=== PATIENT | female | born 1960 | race Caucasian/White ===

== ENCOUNTER 2018-07-19 16:48 | Outpatient (REF) | payer OTHER, SELFPAY ==
[2018-07-19 22:50] LABS: HCT 39.5 % (36.0-46.0); HGB 13.1 g/dL (12.0-15.5); Mean Corp. HGB Concentration 33.2 g/dL (32.0-36.0); Mean Corpuscular Hemoglobin 30.8 pg (27.0-33.0); Mean Corpuscular Volume 92.7 fL (80-95); Mean Platelet Volume 12.5 fL (8.0-11.0); Platelet Count 210 x1000/uL (130-400); RBC 4.26 m/cumm (4.00-5.20); RBC Distribution Width 12.7 % (11.7-14.6); White Blood Cell Count 6.44 k/cumm (4.4-10.8)
[2018-07-19 23:07] LABS: Anion Gap 9.3 mmol/L (3-11); BUN 12 mg/dL (7-18); CO2 29.7 mmol/L (21.0-32.0); Calcium 9.6 mg/dL (8.5-10.1); Chloride 103 mmol/L (98-107); Estimated GFR 56.75 (mL/min/1.73m2); Ferritin 43 ng/mL (8-388); Glucose 99 mg/dL (70-100); Potassium 4.7 mmol/L (3.5-5.1); Sodium 142 mmol/L (136-145)
[2018-07-19 23:10] LABS: Hemoglobin A1C 6.3 % (4.5-6.2)
== END 2018-07-19 17:08 ==
LOC: NCHCN 16:48
PROVIDERS: PCP Internal Medicine; Visit Provider Family Medicine
DX: Z00.00 Encounter for general adult medical examination without abnormal findings (principal); L65.9 Nonscarring hair loss, unspecified; G43.909 Migraine, unspecified, not intractable, without status migrainosus
CPT/HCPCS: 80048; 85027; 82728; 83036; 84443

== ENCOUNTER 2018-10-03 15:21 | Outpatient (CLI) | payer OTHER, SELFPAY ==
[2018-10-03 16:00] LABS: Hemoglobin A1C 6.3 % (4.5-6.2)
== END 2018-10-03 15:41 ==
PROVIDERS: PCP Family Medicine; Visit Provider Family Medicine
DX: R73.09 Other abnormal glucose (principal)
CPT/HCPCS: 36415; 83036

== ENCOUNTER 2018-12-20 14:00 | Outpatient (REF) | payer OTHER, SELFPAY ==
--- NOTE | 2018-12-22 12:30 | PAPFT_PTH ---
PATIENT: Cheri Caputo LOC: [facility] U#:[id number] AGE/SX: 58/F ROOM: RE12/20/[address]: Mariann Buchanan MD : 1960 BED: DIS: 12/20/2018 SPEC #: [id number] RECD: 12/25/18 12:53 STATUS: DIANA MCPHERSON #: [id number] MOLLY: 12/22/18 12:[address]: Mariann Buchanan DEPT: [facility] Cytology RECD BY: Claudette Contreras Tissues: 1 - CX/ENDOCX FOR PAP SMEARS Procedures: PAP THIN PREP/UVM Screening HPV DNA PROBE Comments: [id number]
== END 2018-12-20 14:20 ==
LOC: LBN 14:00
PROVIDERS: PCP Family Medicine; Visit Provider Family Medicine
DX: Z12.4 Encounter for screening for malignant neoplasm of cervix (principal); Z11.51 Encounter for screening for human papillomavirus (HPV)
CPT/HCPCS: 88142; 87624

== ENCOUNTER 2019-02-15 09:09 | Outpatient (CLI) | payer OTHER, SELFPAY ==
[2019-02-15 09:51] LABS: Hemoglobin A1C 6.3 % (4.5-6.2)
== END 2019-02-15 09:29 ==
PROVIDERS: PCP Family Medicine; Visit Provider Family Medicine
DX: D58.2 Other hemoglobinopathies (principal)
CPT/HCPCS: 36415; 83036

== ENCOUNTER 2019-05-08 14:41 | Outpatient (CLI) | payer OTHER, SELFPAY ==
[2019-05-08 15:32] LABS: Abs Immature Grans 0.01 k/cumm (0.0-0.09); Absolute Basophil Count 0.04 k/cumm (0.0-0.2); Absolute Eosinophil Count 0.32 k/cumm (0.0-0.7); Absolute Lymphocyte Count 2.16 k/cumm (1.2-3.4); Absolute Monocyte Count 0.51 k/cumm (0.11-0.7); Absolute Neutrophil Count 4.17 k/cumm (1.2-6.7); Basophils % 0.6; Eosinophils % 4.4; HCT 38.3 % (36.0-46.0); HGB 12.6 g/dL (12.0-15.5); Immature Grans % 0.1; Mean Corp. HGB Concentration 32.9 g/dL (32.0-36.0); Mean Corpuscular Hemoglobin 30.3 pg (27.0-33.0); Mean Corpuscular Volume 92.1 fL (80-95); Mean Platelet Volume 11.6 fL (8.0-11.0); Monocytes % 7.1; Neutrophils % 57.8; Platelet Count 240 x1000/uL (130-400); RBC 4.16 m/cumm (4.00-5.20); RBC Distribution Width 12.8 % (11.7-14.6); White Blood Cell Count 7.21 k/cumm (4.4-10.8)
[2019-05-08 16:14] LABS: TSH 2.01 uIU/mL (0.36-3.74)
[2019-05-08 16:33] LABS: ESR 12 mm/hr (0-30)
[2019-05-08 16:49] LABS: Hemoglobin A1C 6.1 % (4.5-6.2)
== END 2019-05-08 15:01 ==
PROVIDERS: PCP Family Medicine; Visit Provider Internal Medicine
DX: R53.83 Other fatigue (principal); R50.9 Fever, unspecified
CPT/HCPCS: 36415; 85652; 83036; 84443; 85025

== ENCOUNTER 2019-12-08 08:44 | Emergency (ER) | payer BC, SELFPAY ==
[2019-12-08 08:50] VITALS: BP 158/91; PULSE 107; RESP 18; TEMP 36.7; O2SAT 98
--- NOTE | 2019-12-08 09:00 | DI.RAD_ITS ---
EXAM: XR PORTABLE CHEST AP CLINICAL HISTORY: cough, fever, PUI TECHNIQUE: 2D digital imaging was performed. COMPARISON: No exams were available for comparison FINDINGS: MEDIASTINUM: Normal. HEART: Normal. PULMONARY VASCULATURE: Normal. LUNGS: Clear. PLEURAL SPACE: No pleural effusion or pneumothorax. BONE:Normal. OTHER FINDINGS:Normal. IMPRESSION: No acute pulmonary findings. DATA REPOSITORY: RADIATION DOSE DELIVERED:
--- NOTE | 2019-12-08 09:20 | ED.GENADUL_ITS ---
Discharge Plan Disposition Patient Disposition: HOME Condition: Stable Discharge Details Chief Complaint: Fever Clinical Impression: COVID-19 virus test result unknown, Acute febrile illness Primary Care Provider: Mariann Buchanan ED Provider: Brandan Almazan Home Meds and New Rx's Prescriptions: Continued oxymetazoline [Afrin (oxymetazoline)] 15 ML spray,non-aerosol 1 spry NS HS RF: 0 cholecalciferol (vitamin D3) 2,000 unit tablet 1,000 unit PO DAILY RF: 0 ibuprofen 600 mg tablet 600 mg PO Q6H PRN Qty: 90 RF: 2 friginodlx-utpxikqycdbvg-gwsa 50-325-40 mg tablet 1 - 2 tab PO Q4H PRN Qty: 60 RF: 0 (DME) blood-glucose meter Misc See Rx Instructions .ROUTE .MEDSUPPLY Qty: 1 RF: 0 (DME) blood sugar diagnostic [Blood Glucose Test] Strip See Rx Instructions .ROUTE .MEDSUPPLY Qty: 100 RF: 2 (DME) lancets [Comfort Lancets] Misc See Rx Instructions .ROUTE .MEDSUPPLY Qty: 100 RF: 2 metformin 500 mg tablet extended release 24 hr 1,500 mg PO DAILY RF: 0 Discharge Instructions Instructions: Fever in Adults (ED) Additional Instructions: Labs today were nondiagnostic. Your white blood cell count was 4.57. Your glucose was 111. I am concerned that you may have COVID-19 given recent exposure and symptoms. Please drink plenty of fluids to maintain hydration. Maintain quarantine at home. COVID-19 testing is pending at this time. Tick borne illness testing is also pending. Please contact your primary care physician to arrange follow-up. Call on Tuesday. Please return to the ER immediately for any worsening or new concerning symptoms including shortness of breath or difficulty breathing. Stand Alone Forms: PENDING COVID-19 TESTING Discharge Data Discharge Date/Time-TO BE ENTERED AT DEPARTURE: 12/08/19 11:35 Medical Decision Making 929??59-year-old female here with fever, chills, myalgias since yesterday. She has had significant contact with a person who has tested positive for COVID-19 over the past week. Also recent tick bite about 2 to 3 weeks ago. Patient did receive doxycycline after tick removal and I think tickborne disease is low likelihood but will check chemistry to assess liver function, CBC, and tickborne disease screening panel. Patient initially tachycardic on arrival secondary to anxiety. Patient has been hydrating well. She was not tachycardic with a heart rate of 96bpm on my exam. Consider consider pneumonia. Will obtain chest x-ray. High suspicion for COVID-19. Will check COVID-19 testing. Will give tylenol and ibuprofen for fever. 1033 --labs reviewed and nondiagnostic. Chest x-ray reviewed and interpreted by me: No acute cardiopulmonary disease. Radiology read pending. All results were discussed with the patient. Repeat vitals performed and heart rate normal. Pulse oximetry saturations remain normal. Patient reassessed: She is stable and feeling much better after Tylenol and ibuprofen. Plan for outpatient follow-up with PCP and follow-up with COVID-19 testing and tick panel. Patient to be to maintain quarantine until testing negative and clearance by PCP. Usual customary discharge instructions provided, discharge plan was discussed with the patient who verbalized understanding. Lab Data Lab results reviewed: Yes I reviewed the patient's lab results. Labs: Laboratory Tests Range/Units 12/08/19 12/08/19 09:40 09:40 WBC (4.4-10.8) k/cumm 4.57 RBC (4.00-5.20) m/cumm 4.35 Hgb (12.0-15.5) g/dL 13.2 Hct (36.0-46.0) % 39.2 MCV (80-95) fL 90.1 MCH (27.0-33.0) pg 30.3 MCHC (32.0-36.0) g/dL 33.7 RDW (11.7-14.6) % 12.7 Plt Count (130-400) x1000/uL 181 MPV (8.0-11.0) fL 10.8 Immature Gran % % 0.2 Neutrophils % 83.4 Lymphocytes % 9.0 Monocytes % 6.8 Eosinophils % 0.2 Basophils % 0.4 Absolute Neutrophils (1.2-6.7) k/cumm 3.81 Absolute Lymphocytes (1.2-3.4) k/cumm 0.41 L Absolute Monocytes (0.11-0.7) k/cumm 0.31 Absolute Eosinophils (0.0-0.7) k/cumm 0.01 Absolute Basophils (0.0-0.2) k/cumm 0.02 Sodium (136-145) mmol/L 136 Potassium (3.5-5.1) mmol/L 4.1 Chloride (98-107) mmol/L 100 Carbon Dioxide (21.0-32.0) mmol/L 28.0 Anion Gap (3-11) mmol/L 8.0 BUN (7-18) mg/dL 10 Creatinine (0.55-1.02) mg/dL 1.06 H Estimated GFR/1.73 m2 (mL/min/1.73m2) 52.88 Glucose (74-106) mg/dL 111 H Calcium (8.5-10.1) mg/dL 9.3 Total Bilirubin (0.2-1.0) mg/dL 0.5 AST (15-37) U/L 27 ALT (14-59) U/L 40 Alkaline Phosphatase (46-116) U/L 62 Total Protein (6.4-8.2) g/dL 7.9 Albumin (3.4-5.0) g/dL 4.0 HPI General Mode of arrival: ambulatory . Date/Time Provider Initiated Documentation: 12/08/19 08:55 . Limitations to Documentation: no limitations . Information obtained by: patient . HPI Narrative: 59-year-old female with history of diabetes, here with chief complaint of fever. Patient notes fever and associated chills and myalgias since yesterday. Symptoms are moderate. No associated shortness of breath currently. No cough. She notes that she is currently living with someone who is COVID-19 positive. This person recently traveled from [place] and was in [facility] prior to travel to [place]. Patient notes that she traveled to [facility] and was careless and has had close contact with COVID-19 positive person. Patient does state that she has had low pulse ox of 93% at home. Patient also notes she had a tick bite on her right abdomen that did not develop a rash about 2 weeks ago. She did take doxycycline 200 mg after tick removal. She believes the tick was a deer tick. Related Data Home Medications Medication Instructions Recorded Confirmed oxymetazoline [Afrin 1 spry NS HS spray 07/15/15 12/08/19 (oxymetazoline)] cholecalciferol (vitamin D3) 50 1,000 unit PO DAILY tab 07/10/19 12/08/19 mcg (2,000 unit) tablet ibuprofen 600 mg tablet 600 mg PO Q6H PRN #90 tab-cap 09/04/19 12/08/19 cyutuixwos-olyggujydwcet-litmzeqg 1 - 2 tab PO Q4H PRN #60 tab-cap 09/05/19 12/08/19 50 mg-325 mg-40 mg tablet blood sugar diagnostic #100 each 09/21/19 blood-glucose meter #1 each 09/21/19 lancets #100 each 09/21/19 metformin 1,500 mg PO DAILY 12/08/19 12/08/19 Previous Rx's Medication Instructions Recorded ibuprofen 600 mg tablet 600 mg PO Q6H PRN #90 tab-cap 09/04/19 ysphbdlmlv-uuvmwmjualval-gjcbeqrg 1 - 2 tab PO Q4H PRN #60 tab-cap 09/05/19 50 mg-325 mg-40 mg tablet blood sugar diagnostic #100 each 09/21/19 blood-glucose meter #1 each 09/21/19 lancets #100 each 09/21/19 Allergies Allergy/AdvReac Type Severity Reaction Status Date / Time sumatriptan [From Imitrex] AdvReac Severe VOMITING Unverified 12/08/19 08:54 sumatriptan succinate AdvReac Severe VOMITING Unverified 12/08/19 08:54 [From Imitrex] General Stated Complaint: Fever PUNEET: 2 Review of Systems All systems reviewed & are unremarkable except as noted in HPI and below Constitutional Constitutional: Reports fever(s) Respiratory Respiratory: Denies cough Musculoskeletal Musculoskeletal: Reports as per HPI Integumentary/Breasts Skin/Breast: Denies rash PFSH Surgical History bone marrow donation Breast, Mastectomy left with implant and reconstruction Excision, Pilonidal Cyst Fracture, Open Treatment right tibia mastoplexy right rhinoplasty Tonsillectomy Trigger Finger release Family History Mother Essential hypertension Father Essential hypertension Personal history of malignant neoplasm lung/kidney Heart disease Hyperlipidemia Sister Diabetes Personal history of malignant neoplasm multiple Sister Essential hypertension Personal history of malignant neoplasm lung Grandfather No problems noted. Grandfather Diabetes Heart disease Grandmother Essential hypertension Hyperlipidemia Stroke Grandmother Personal history of malignant neoplasm BREAST Daughter No problems noted. Daughter No problems noted. Social History Smoking/Tobacco Use Status: Former Tobacco Use Alcohol Intake: current Alcohol Intake frequency: a few times a month Drug use: Never Substance use type: does not use Do you feel safe at home: Yes Do you feel safe in your relationship?: Yes Exam Const General: cooperative and no acute distress Eyes Conjunctivae: normal conjunctivae Sclera: normal sclerae Neck Neck: trachea midline Resp Auscultation: clear to auscultation bilaterally, no rales, no rhonchi and no wheezes Cardio Jugular venous pressure: no JVD Rate: regular rate and not tachycardic Rhythm: regular rhythm Skin Rashes: no rashes Other: Small healing tick bite right abdomen with no erythema Neuro General: patient alert, patient awake, patient oriented x3 and tone normal Psych Mental Status: mental status grossly normal Speech and Movement: speech and movement normal Affect: anxious affect Course Vital Signs Vital signs: Vital Signs Temperature 36.7 C 12/08/19 08:50 Pulse 107 H 12/08/19 08:50 Respiratory Rate 18 12/08/19 08:50 Blood Pressure 158/91 H 12/08/19 08:50 Pulse Oximetry 98 12/08/19 08:50 Temperature 36.7 C 12/08/19 08:50 Temperature Source Temporal Artery Scan 12/08/19 08:50 Pulse 107 H 12/08/19 08:50 Respiratory Rate 18 12/08/19 08:50 Respiratory Effort Non-Labored 12/08/19 08:57 Blood Pressure 158/91 H 12/08/19 08:50 Blood Pressure Position Sitting 12/08/19 08:50 Pulse Oximetry 98 12/08/19 08:50 Oxygen Delivery Method Room Air 12/08/19 08:50 Oxygen Flow Rate 0 12/08/19 08:50 Pain Level 2 12/08/19 08:50
[2019-12-08 09:59] LABS: Abs Immature Grans 0.01 k/cumm (0.0-0.09); Absolute Basophil Count 0.02 k/cumm (0.0-0.2); Absolute Eosinophil Count 0.01 k/cumm (0.0-0.7); Absolute Lymphocyte Count 0.41 k/cumm (1.2-3.4); Absolute Monocyte Count 0.31 k/cumm (0.11-0.7); Absolute Neutrophil Count 3.81 k/cumm (1.2-6.7); Basophils % 0.4; Eosinophils % 0.2; HCT 39.2 % (36.0-46.0); HGB 13.2 g/dL (12.0-15.5); Immature Grans % 0.2 %; Mean Corp. HGB Concentration 33.7 g/dL (32.0-36.0); Mean Corpuscular Hemoglobin 30.3 pg (27.0-33.0); Mean Corpuscular Volume 90.1 fL (80-95); Mean Platelet Volume 10.8 fL (8.0-11.0); Monocytes % 6.8; Neutrophils % 83.4; Platelet Count 181 x1000/uL (130-400); RBC 4.35 m/cumm (4.00-5.20); RBC Distribution Width 12.7 % (11.7-14.6); White Blood Cell Count 4.57 k/cumm (4.4-10.8)
[2019-12-08] MEDS: Ibuprofen 600 MG TAB PO (10:00)
[2019-12-08] MEDS: Acetaminophen 325 MG TAB 650 MG PO (10:00)
[2019-12-08 10:15] LABS: ALT 40 U/L (14-59); AST 27 U/L (15-37); Alkaline Phosphatase 62 U/L (46-116); BUN 10 mg/dL (7-18); Bilirubin, Total 0.5 mg/dL (0.2-1.0); CREATININE 1.06 mg/dL (0.55-1.02); Calcium 9.3 mg/dL (8.5-10.1); Chloride 100 mmol/L (98-107); Estimated GFR 52.88 (mL/min/1.73m2); Glucose 111 mg/dL (74-106); Potassium 4.1 mmol/L (3.5-5.1); Sodium 136 mmol/L (136-145); Total Protein 7.9 g/dL (6.4-8.2)
[2019-12-08 11:21] VITALS: BP 136/80; PULSE 75; RESP 18; TEMP 36.4; O2SAT 96
[2019-12-08 11:35] VITALS: BP 136/80; PULSE 75; RESP 18; TEMP 36.4; O2SAT 96
--- NOTE | 2019-12-08 11:45 | DI.VRAD_ITS ---
PROCEDURE INFORMATION: Exam: XR Chest, 1 View Exam date and time: 12/08/2019 10:24 AM Age: 59 years old Clinical indication: Fever TECHNIQUE: Imaging protocol: XR of the chest Views: 1 view. COMPARISON: No relevant prior studies available. FINDINGS: Lungs: Unremarkable. No consolidation. Pleural space: Unremarkable. No pleural effusion. No pneumothorax. Heart/Mediastinum: Unremarkable. No cardiomegaly. Bones/joints: Unremarkable. IMPRESSION: No acute findings. Dictated and Authenticated by: Mathew Boogie MD. Ordering:THERESA Gipson MD
[2019-12-09 13:36] LABS: COVID-19 RT-PCR UVMMC Result Negative (Negative)
[2019-12-10 11:10] LABS: Lyme Ab w Rflx to Lyme Confirm Negative (Negative)
[2019-12-11 23:29] LABS: Anaplasma phagocytophilum Positive (Negative); B. miyamotoi PCR Negative (Negative); Babesia divergens/MO-1 Negative (Negative); Babesia duncani Negative (Negative); Babesia microti Negative (Negative); Ehrlichia chaffeensis Negative (Negative); Ehrlichia ewingii/canis Negative (Negative); Ehrlichia muris eauclairensis Negative (Negative)
== END 2019-12-08 11:35 | disposition home or self-care (01) ==
PROVIDERS: Emergency Provider Student in an Organized Health Care Education/Training Program; PCP Family Medicine
DX: M79.10 Myalgia, unspecified site (principal); R50.9 Fever, unspecified; Z20.828 Contact with and (suspected) exposure to other viral communicable diseases; S30.861A Insect bite (nonvenomous) of abdominal wall, initial encounter; W57.XXXA Bitten or stung by nonvenomous insect and other nonvenomous arthropods, initial encounter; E11.9 Type 2 diabetes mellitus without complications; Z79.84 Long term (current) use of oral hypoglycemic drugs
CPT/HCPCS: 36415; 80053; 87798; 99284; U0003; 71045; 85025; 86618

== ENCOUNTER 2019-12-11 08:07 | Outpatient (CLI) | payer BC, SELFPAY ==
[2019-12-11 23:01] LABS: COVID-19 RT-PCR UVMMC Result Negative (Negative)
== END 2019-12-11 08:27 ==
PROVIDERS: PCP Family Medicine; Visit Provider Family Medicine
DX: Z20.828 Contact with and (suspected) exposure to other viral communicable diseases (principal)
CPT/HCPCS: U0003

== ENCOUNTER 2020-01-02 09:19 | Outpatient (CLI) | payer BC, SELFPAY ==
[2020-01-02 13:15] LABS: Hemoglobin A1C 5.9 % (3.8-5.6)
[2020-01-02 13:32] LABS: Ferritin 32 ng/mL (8-252); Vitamin B12 483 pg/mL (193-986)
== END 2020-01-02 09:39 ==
PROVIDERS: PCP Family Medicine; Visit Provider Family Medicine
DX: L65.9 Nonscarring hair loss, unspecified (principal); R73.9 Hyperglycemia, unspecified; T38.3X5A Adverse effect of insulin and oral hypoglycemic [antidiabetic] drugs, initial encounter
CPT/HCPCS: 36415; 82607; 82728; 83036

== ENCOUNTER 2020-01-24 01:19 | Outpatient (CLI) | payer BC, SELFPAY ==
--- NOTE | 2020-01-24 09:25 | DI.RAD_ITS ---
EXAM: XR TOE LT FOURTH CLINICAL HISTORY: f/u fx lt 4th toe, compare to outside,s92.502a TECHNIQUE: COMPARISON: CR LEFT FOOT COMPLETE from 07/09/2014 FINDINGS: Three views were obtained. There is a fracture the base of the proximal phalanx of the 4th toe which extends through the proximal articular surface with moderate displacement. No other fracture seen. IMPRESSION:
== END 2020-01-24 01:39 ==
PROVIDERS: PCP Family Medicine; Visit Provider Family Medicine
DX: S92.912A Unspecified fracture of left toe(s), initial encounter for closed fracture (principal)
CPT/HCPCS: 73660

== ENCOUNTER 2020-03-28 02:17 | Outpatient (CLI) | payer BC, SELFPAY ==
[2020-03-29 20:50] LABS: COVID-19 RT-PCR Result NEGATIVE (Negative)
== END 2020-03-28 02:37 ==
PROVIDERS: PCP Family Medicine; Visit Provider Family Medicine
DX: Z11.59 Encounter for screening for other viral diseases (principal)
CPT/HCPCS: U0003

== ENCOUNTER 2020-11-03 10:56 | Outpatient (REF) | payer BC, SELFPAY ==
[2020-11-04 02:25] LABS: COVID-19 RT-PCR UVMMC Result Negative (Negative)
[2020-11-04 10:30] LABS: Lyme Ab w Rflx to Lyme Confirm Negative (Negative)
[2020-11-05 19:15] LABS: Anaplasma phagocytophilum Negative (Negative); B. miyamotoi PCR Negative (Negative); Babesia divergens/MO-1 Negative (Negative); Babesia duncani Negative (Negative); Babesia microti Negative (Negative); Ehrlichia chaffeensis Negative (Negative); Ehrlichia ewingii/canis Negative (Negative); Ehrlichia muris eauclairensis Negative (Negative)
== END 2020-11-03 10:57 | disposition home or self-care (01) ==
LOC: LBN 10:56
PROVIDERS: PCP Family Medicine; Visit Provider Nurse Practitioner Family
DX: J06.9 Acute upper respiratory infection, unspecified (principal); R50.9 Fever, unspecified; M79.18 Myalgia, other site; Z20.822 Contact with and (suspected) exposure to COVID-19
CPT/HCPCS: 87798; U0003; 86618

== ENCOUNTER 2021-06-11 15:55 | Outpatient (REF) | payer BC, SELFPAY ==
[2021-06-13 01:01] LABS: COVID-19 RT-PCR UVMMC Result Negative (Negative)
== END 2021-06-11 15:56 | disposition home or self-care (01) ==
LOC: LBN 15:55
PROVIDERS: PCP Emergency Medicine; Visit Provider Physician Assistant
DX: Z20.822 Contact with and (suspected) exposure to COVID-19 (principal)
CPT/HCPCS: U0003

== ENCOUNTER 2023-02-02 02:51 | Outpatient (CLI) | payer BC, SELFPAY ==
[2023-02-02 09:44] LABS: Abs Immature Grans 0.02 10^3/uL (0.0-0.06); Absolute Basophil Count 0.06 10^3/uL (0.0-0.2); Absolute Eosinophil Count 0.26 10^3/uL (0.0-0.7); Absolute Lymphocyte Count 1.38 10^3/uL (1.2-3.4); Absolute Monocyte Count 0.47 10^3/uL (0.1-0.8); Absolute Neutrophil Count 3.23 10^3/uL (1.2-6.7); Basophils % 1.1; Eosinophils % 4.8; HCT 41.9 % (36.0-46.0); HGB 13.9 g/dL (11.2-15.7); Immature Grans % 0.4; Lymphocytes % 25.5; MCH 30.5 pg (27.0-33.0); MCHC 33.2 % (32.0-36.0); MCV 92 fL (80-95); MPV 10.9 fL (8.0-11.0); Monocytes % 8.7; Neutrophils % 59.5; Platelet Count 208 10^3/uL (130-400); RBC 4.55 10^6/uL (3.93-5.22); RDW 12.9 % (11.7-14.6); RDW-SD 43.3 fL; WBC 5.42 10^3/uL (4.4-10.8)
[2023-02-02 10:19] LABS: ALT 23 U/L (14-59); AST 18 U/L (15-37); Albumin 3.7 g/dL (3.4-5.0); Alkaline Phosphatase 87 U/L (46-116); BUN 12 mg/dL (7-18); Bilirubin, Total 0.3 mg/dL (0.2-1.0); CREATININE 0.9 mg/dL (0.55-1.02); Calcium 9.4 mg/dL (8.5-10.1); Chloride 106 mmol/L (98-107); Estimated GFR 71.39 (mL/min/1.73m2); Glucose 86 mg/dL (74-106); Potassium 4.5 mmol/L (3.5-5.1); Sodium 145 mmol/L (136-145); Total Protein 7.4 g/dL (6.4-8.2)
[2023-02-02 16:40] LABS: Lab Add On Test DONE
[2023-02-03 09:52] LABS: Hepatitis C Ab w Rflx HCV PCR Negative (Negative)
== END 2023-02-02 02:52 | disposition home or self-care (01) ==
LOC: LBO 02:51
PROVIDERS: PCP Family Medicine; Visit Provider Family Medicine
DX: G89.29 Other chronic pain (principal); Z00.00 Encounter for general adult medical examination without abnormal findings; Z13.1 Encounter for screening for diabetes mellitus
CPT/HCPCS: 36415; 80053; 86803; 83036; 85025

== ENCOUNTER → 2023-06-22 03:51 | Outpatient (CLI) | payer BC, SELFPAY ==
--- NOTE | 2023-06-22 08:15 | DI.RAD_ITS ---
Exam(s) XR LUMBAR SPINE COMPLETE EXAM: XR LUMBAR SPINE COMPLETE CLINICAL HISTORY: chronic left low back pain,M54.50. TECHNIQUE: 2D digital imaging was performed of the lumbar spine. Five images were obtained. AP, la teral, right oblique, left oblique and L5-S1 spot views were obtained. COMPARISON: DX DEXA BONE DENSITY WITH SHANNAN from 11/02/2016 FINDINGS: BONES: No fracture or destructive lesion. Endplate osteophytes are present at multiple levels, partic ularly at the L2-3 level. Degenerative changes are seen at L4-5 and L5-S1. DISKS: There is disc space narrowing at L2-L3. ALIGNMENT: There is a mild left convex scoliosis centered at L2. No spondylolysis or spondylolisthesi s. SOFT TISSUE: There are soft tissue calcifications seen in the pelvis likely reflecting uterine fibroi ds. IMPRESSION: Moderate degenerative changes in the lumbar spine. DATA REPOSITORY: RADIATION DOSE DELIVERED:
== END ==
PROVIDERS: PCP Family Medicine; Visit Provider Family Medicine
DX: G89.29 Other chronic pain (principal); M54.50 Low back pain, unspecified
CPT/HCPCS: 72110

== ENCOUNTER → 2023-09-29 04:55 | Outpatient (CLI) | payer BC, SELFPAY ==
--- NOTE | 2023-09-29 08:45 | DI.DEXA_ITS ---
Exam(s) XR DEXA BONE DENSITY W/WO SHANNAN EXAM: XR DEXA BONE DENSITY W/WO SHANNAN CLINICAL HISTORY: F/u osteopenia,screening for osteoporosis in postmenopausal woman,z78.0, TECHNIQUE: COMPARISON: DX DEXA BONE DENSITY WITH SHANNAN from 11/02/2016 FINDINGS: Lateral Spine Image: Unremarkable. No compression deformities identified. Left hip: Total T-Score: -1.8. This compares to -1.3 on the prior examination. Total Z-Score: -0.6 T- and Z-scores: Findings are consistent with osteopenia. Lumbar Spine: Total T-Score: -1.7. This compares to -1.5 on the prior examination. Total Z-Score: 0.0 T- and Z-scores: Findings are consistent with osteopenia. Note is made of osteoporosis in the left forearm with a total T-score of -2.5 and a Z-score of -1.0. This compares with a total T-score of -1.9 on the prior examination. IMPRESSION: 1. No evidence of osteoporosis in the lumbar spine or left hip. 2. Osteoporosis is seen in the left forearm.
== END ==
PROVIDERS: PCP Family Medicine; Visit Provider Family Medicine
DX: M81.0 Age-related osteoporosis without current pathological fracture (principal); M85.88 Other specified disorders of bone density and structure, other site; Z78.0 Asymptomatic menopausal state
CPT/HCPCS: 77080

== ENCOUNTER 2024-01-24 11:00 | Outpatient (REF) | payer MEDICARE, SELFPAY ==
--- NOTE | 2024-01-24 09:45 | PAPFT_PTH ---
PATIENT: Cheri Caputo LOC: [facility] U#:[id number] AGE/SX: 63/F ROOM: RE01/24/[address]: Mirna Cross : 1960 BED: DIS: 01/24/2024 SPEC #: [id number] RECD: 01/24/24 13:29 STATUS: DIANA MCPHERSON #: [id number] MOLLY: 01/24/24 09:[address]: Mirna Cross DEPT: [facility] Cytology RECD BY: Shira Mauricio Tissues: 1 - CX/ENDOCX FOR PAP SMEARS Procedures: PAP THIN PREP/UVM Screening HPV DNA PROBE Comments: [id number] (HPV 16 & 18/45)
== END 2024-01-24 11:01 | disposition home or self-care (01) ==
LOC: LBN 11:00
PROVIDERS: PCP Family Medicine; Visit Provider Family Medicine
DX: Z12.4 Encounter for screening for malignant neoplasm of cervix (principal); M41.9 Scoliosis, unspecified; M54.50 Low back pain, unspecified; G89.29 Other chronic pain; M85.80 Other specified disorders of bone density and structure, unspecified site; Z78.0 Asymptomatic menopausal state
CPT/HCPCS: 88142; 88164; 87624; P3000

== ENCOUNTER 2024-03-27 03:16 | Outpatient (CLI) | payer MEDICARE, SELFPAY ==
[2024-03-27 09:58] LABS: Anion Gap 6.8 mmol/L (3-11); BUN 14 mg/dL (7-18); CO2 30.2 mmol/L (21.0-32.0); CREATININE 0.9 mg/dL (0.55-1.02); Calcium 9.5 mg/dL (8.5-10.1); Calculated LDL 77 mg/dL (<100); Chloride 106 mmol/L (98-107); Cholesterol 183 mg/dL (<200); Estimated GFR 70.95 (mL/min/1.73m2); Glucose 100 mg/dL (74-106); HDL Cholesterol 95 mg/dL (40-60); Potassium 4.4 mmol/L (3.5-5.1); Sodium 143 mmol/L (136-145); Triglyceride 57 mg/dL (<150); Vitamin D 25 Total 51.9 ng/mL (30-100)
== END 2024-03-27 03:17 | disposition home or self-care (01) ==
LOC: LBO 03:16
PROVIDERS: PCP Family Medicine; Visit Provider Family Medicine
DX: Z13.6 Encounter for screening for cardiovascular disorders (principal); Z13.1 Encounter for screening for diabetes mellitus; M85.80 Other specified disorders of bone density and structure, unspecified site; Z78.0 Asymptomatic menopausal state
CPT/HCPCS: 36415; 80048; 80061; 82306

== ENCOUNTER 2025-01-04 14:49 | Emergency (ER) | payer MEDICARE, SELFPAY ==
[2025-01-04 14:51] VITALS: BP 144/85; PULSE 75; RESP 16; TEMP 37.4; O2SAT 96
[2025-01-04 15:00] VITALS: BP 144/85; PULSE 75; RESP 16; TEMP 37.4; O2SAT 96
[2025-01-04] MEDS: Doxycycline Hyclate 100 MG CAP PO (15:16)
--- NOTE | 2025-01-04 15:16 | W.ED.GENAD ---
Discharge Plan Disposition Patient Disposition: Home Discharge Details Clinical Impression: Cellulitis Primary Care Provider: Mrina Cross ED Provider: Madai Huerta Home Meds and New Rx's Prescriptions: New doxycycline hyclate 100 mg capsule 100 mg PO BID 10 Days Qty: 20 0RF No Action oxymetazoline [Afrin (oxymetazoline)] 15 ML spray,non-aerosol 1 spry NS HS atqafatjdc-vrrsyzabihvdg-owgy 50-325-40 mg tablet 1 - 2 tab PO Q4H PRN Qty: 60 0RF tramadol 50 mg tablet 50 mg PO Q8H PRN (Reason: pain) Qty: 30 0RF ibuprofen 600 mg tablet 600 mg PO Q6H PRN Qty: 90 2RF Discharge Instructions Instructions: Cellulitis (Skin Infection), Adult ED Additional Instructions: Symptoms do appear consistent with a localized skin infection. No evidence of abscess today This may be related to a tick bite or other infection, so we will treat with doxycycline. This will cover simple skin infections as well as tickborne illness. Tick and Lyme panel has been sent off but will take several days to result Return to the emergency department if your symptoms are getting worse, redness or swelling, fevers are persistent or you not tolerating the medication. HPI General Date/Time Provider Initiated Documentation: 01/04/25 15:09. Limitations to Documentation: no limitations. Information obtained by: patient. HPI Narrative: 64-year-old female without significant past medical history presents for evaluation of left-sided neck skin change. Reports that symptoms started on Tuesday with some pain in that area, she noted some lymph node swelling. She reports that the redness progressively worsened but stayed localized to the left side of her neck. She has not had any voice change, difficulty swallowing or shortness of breath. She does not know if she has had a tick bite or other insect bite. She denies any itching from this area. She denies any drainage or blistering. She reports that symptoms have worsened so that she is having bodyaches, fevers rigors. She reports a temperature at home. She contacted her primary care provider was told to her to come for abscess drainage. Related Data Home Medications ?Medication ?Instructions ?Recorded ?Confirmed oxymetazoline 0.05 % nasal spray 1 spry NS HS 07/15/15 01/04/25 (Afrin (oxymetazoline)) etpcgrgkdz-lzwwsdemsocfl-idgdznay 1 - 2 tab (1 - 2 x 50-325-40 mg) 06/01/24 01/04/25 50 mg-325 mg-40 mg tablet PO Q4H PRN #60 tab-caps tramadol 50 mg tablet 50 mg PO Q8H PRN pain #30 tabs 10/25/24 01/04/25 ibuprofen 600 mg tablet 600 mg PO Q6H PRN #90 tab-caps 11/12/24 01/04/25 doxycycline hyclate 100 mg capsule 100 mg PO BID 10 days #20 caps 01/04/25 Previous Rx's ?Medication ?Instructions ?Recorded kfcmajqnjr-iuazpalidtljn-fqgtzuvv 1 - 2 tab (1 - 2 x 50-325-40 mg) 06/01/24 50 mg-325 mg-40 mg tablet PO Q4H PRN #60 tab-caps tramadol 50 mg tablet 50 mg PO Q8H PRN pain #30 tabs 10/25/24 ibuprofen 600 mg tablet 600 mg PO Q6H PRN #90 tab-caps 11/12/24 doxycycline hyclate 100 mg capsule 100 mg PO BID 10 days #20 caps 01/04/25 Allergies Allergy/AdvReac Type Severity Reaction Status Date / Time sumatriptan (From Imitrex) AdvReac Severe VOMITING Verified 01/04/25 14:56 General Stated Complaint: Cellulitis PUNEET: 3 Exam Narrative Exam Narrative: Review of Systems: All systems reviewed & are unremarkable except as noted in HPI and below Well-developed, no acute distress Afebrile NCAT PERRL, normal conjunctiva Left neck with a 3 x 2 area of erythema, slight induration, but no fluctuance, no open wound or drainage, there does not appear to be any vesicles, blistering, no urticarial appearance, no erythema migraines appearance RRR Unlabored respiratory effort Nondistended abdomen Course Vital Signs Vital signs: Vital Signs Temperature 37.4 C 01/04/25 14:51 Pulse 75 01/04/25 14:51 Respiratory Rate 16 01/04/25 14:51 Blood Pressure 144/85 H 01/04/25 14:51 Pulse Oximetry 96 01/04/25 14:51 Temperature 37.4 C 01/04/25 15:00 Temperature Source Oral 01/04/25 15:00 Pulse 75 01/04/25 15:00 Respiratory Rate 16 01/04/25 15:00 Blood Pressure 144/85 H 01/04/25 15:00 Blood Pressure Position Sitting 01/04/25 15:00 Pulse Oximetry 96 01/04/25 15:00 Oxygen Delivery Method Room Air 01/04/25 15:00 Oxygen Flow Rate 0 01/04/25 15:00 Pain Level 3 01/04/25 15:00 Medical Decision Making Emergent evaluation of rash, subjective fever chills at home. Afebrile and nontoxic-appearing in the emergency department today. I do low suspicion for sepsis or overwhelming serious bacterial infection. Given symptoms, higher suspicion for anaplasmosis. Area does not appear consistent with a contact dermatitis, urticaria or shingles. Unclear etiology otherwise. No evidence of abscess on today's evaluation. A tick panel has been sent off. Patient is otherwise healthy without any significant comorbidities. Doxycycline started in the emergency department and remaining prescription sent to the pharmacy. Advised close follow-up with primary care. Strict return precautions and guidance provided. PFSH All Active Problems (Updated 01/04/25 @ 15:12 by Madai Huerta MD) Cellulitis (Acute) Scoliosis of lumbar spine (Acute) Chronic left-sided low back pain without sciatica (Acute) Osteopenia after menopause (Chronic 09/2023) with osteoporosis of forearm. Malignant neoplasm of breast (female) (Chronic) Stage 2, premenopausal age 48; Around 2009 left breast, chemo & radiation, mastectomy and reconstruction. Migraine (Chronic 04/30/11) feels they are cervicogenic; gets nausea with triptans; 7-8 migraine / month. Polyp of colon (Acute) 02/27 and 08/03 [facility] [place] Medical History (Updated 01/04/25 @ 15:12 by Madai Huerta MD) Positive anaplasmosis titer tx: doxy 100 bid x 10 days Abnormal Papanicolaou smear of cervix with positive human papilloma virus (HPV) test (05/11/13) Cellulitis of female breast h/o recurrent left breast cellulitis Chest pain (05/11/13) 10/24 normal stress [place] [facility] [place]ional arm pain ongoing Dysfunctional uterine bleeding (05/11/13) koilocytosis on endometrial biopsy post cervical cryotherapy Fracture of ankle (05/11/13) age 41 actually a tib fib maricruz placed in tibia History of gestational diabetes mellitus (05/11/13) 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) Surgical History (Updated 01/20/22 @ 14:37 by Mirna Cross MD) H/O bone marrow donation S/P surgical removal of pilonidal cyst S/P rhinoplasty S/P trigger finger release S/P tonsillectomy and adenoidectomy S/p tibial fracture S/P mastectomy Family History (Updated 01/26/24 @ 15:44 by Savannah Coto) Mother Essential hypertension Jaw cancer Head and neck cancer Hyperlipidemia Father , 64 lung and kidney cancer Essential hypertension Heart disease Hyperlipidemia Cancer of kidney Lung cancer Hypertension Sister , 50 multiple cancer Diabetes Cancer Sister , 51 lung cancer Essential hypertension Diabetes Lung cancer Paternal Grandfather Diabetes Heart disease Maternal Grandmother Essential hypertension Hyperlipidemia Stroke Paternal Grandmother Personal history of malignant neoplasm BREAST Daughter No problems noted. Daughter No problems noted. 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 Pets and animals: No Sexually active: Yes Do you think of yourself as: straight/heterosexual Current gender identity: female What is your relationship status?: How often do you talk on the phone with friends or family?: three or more times per week How often do you get together with friends or relatives?: three or more times per week How often do you attend yazdanism or nondenominational services?: decline to answer Do you belong to any clubs or organized social groups?: yes Panel score (0-1 are the most socially isolated patients): 2 What type of physical activity do you participate in: regular exercise Duration: 45-60 minutes/day Frequency: 3-4 times per week Ame/Samaritan: No preference Special ame needs: No Seatbelt use: always Helmet use: Yes Drive intox or ride w/intox street flusher driver: No Do you feel safe at home: Yes Do you feel safe in your relationship?: Yes
--- NOTE | 2025-01-05 09:25 | NUR.NOTE ---
Nursing Note:Patient called requesting CBC ordered. Patient stated she had labs drawn yesterday during her visit
[2025-01-05 09:33] LABS: Abs Immature Grans 0.01 10^3/uL (0.0-0.06); HCT 34.5 % (36.0-46.0); HGB 11.4 g/dL (11.2-15.7); Immature Grans % 0.2 %; MCH 30.6 pg (27.0-33.0); MCHC 33.0 % (32.0-36.0); MCV 93 fL (80-95); MPV 12.7 fL (8.0-11.0); Platelet Count 112 10^3/uL (130-400); RBC 3.72 10^6/uL (3.93-5.22); RDW 12.6 % (11.7-14.6); RDW-SD 43.3 fL; WBC 4.81 10^3/uL (4.4-10.8)
[2025-01-07 11:11] LABS: Lyme Ab w Rflx to Lyme Confirm Negative (Negative)
[2025-01-07 17:19] LABS: B. miyamotoi PCR Negative (Negative); Babesia divergens/MO-1 Negative (Negative); Ehrlichia muris eauclairensis Negative (Negative)
--- NOTE | 2025-01-07 17:39 | NUR.NOTE ---
Accessed Pt chart to document the antibiotics Pt was prescribed for the Specimen report. Specimen report was put into the doc box for review.
--- NOTE | 2025-01-08 09:13 | W.ED.FU ---
Date of service: 01/04/25 Follow Up Plan: Micro results reviewed, patient is positive for babesiosis. She was discharged with prescription for doxycycline. Per up-to-date recommendations, treatment should be with azithromycin and atovaquone. These prescriptions have been sent to the patient's pharmacy. I contacted the patient to update her on her test results and treatment plan changes. She reports that she feels so much better after taking the doxycycline and she is symptom-free. She is currently on vacation in [place] doing a 30 mile per day bike ride. She states that she is not sure if she will get the medication, but I have advised that she do so and follow-up closely with her PCP for reevaluation of any ongoing symptoms.
== END 2025-01-04 15:32 | disposition home or self-care (01) ==
LOC: ER 15:30
PROVIDERS: Emergency Medicine; Emergency Provider Emergency Medicine; PCP Family Medicine
DX: L03.221 Cellulitis of neck (principal)
CPT/HCPCS: 99283 ×2; 36415; 87798; 85025; 86618

== ENCOUNTER 2025-04-02 03:20 | Outpatient (CLI) | payer MEDICARE, SELFPAY ==
[2025-04-02 09:38] LABS: Abs Immature Grans 0.01 10^3/uL (0.0-0.06); HCT 39.9 % (36.0-46.0); HGB 13.3 g/dL (11.2-15.7); Immature Grans % 0.2 %; MCH 30.4 pg (27.0-33.0); MCHC 33.3 % (32.0-36.0); MCV 91 fL (80-95); MPV 11.2 fL (8.0-11.0); Platelet Count 194 10^3/uL (130-400); RBC 4.38 10^6/uL (3.93-5.22); RDW 12.7 % (11.7-14.6); RDW-SD 42.5 fL; WBC 5.36 10^3/uL (4.4-10.8)
[2025-04-02 09:55] LABS: Hemoglobin A1C 6.1 % (<5.7)
[2025-04-02 10:20] LABS: ALT 25 U/L (14-59); AST 18 U/L (15-37); Albumin 3.8 g/dL (3.4-5.0); Alkaline Phosphatase 76 U/L (46-116); Anion Gap 9.4 mmol/L (3-11); BUN 13 mg/dL (7-18); Bilirubin, Total 0.4 mg/dL (0.2-1.0); CO2 29.6 mmol/L (21.0-32.0); Calcium 9.4 mg/dL (8.5-10.1); Chloride 106 mmol/L (98-107); Estimated GFR 62.13 (mL/min/1.73m2); Glucose 104 mg/dL (74-106); Potassium 4.3 mmol/L (3.5-5.1); Sodium 145 mmol/L (136-145); Total Protein 7.3 g/dL (6.4-8.2)
== END 2025-04-02 03:21 | disposition home or self-care (01) ==
PROVIDERS: PCP Family Medicine; Visit Provider Family Medicine
DX: R73.01 Impaired fasting glucose (principal); D64.9 Anemia, unspecified; I10 Essential (primary) hypertension
CPT/HCPCS: 36415; 80053; 83036; 85025